=== PATIENT | female | born 1955 | race Caucasian/White ===

== ENCOUNTER 2016-08-02 02:49 | Inpatient (IN) ==
[2016-07-28 14:27] LABS: MANUAL DIFF NEEDED? NO
[2016-07-28 14:27] LABS: URINE MICRO REVIEW NEEDED? NO; URINE SOURCE CLEAN CATCH
[2016-07-28 14:28] LABS: BASO% 0.3 % (0.0-0.8); EOS# 0.18 X1000 (0.0-0.7); EOS% 1.8 % (0.0-10.0); HEMATOCRIT 40.1 % (37.0-47.0); HEMOGLOBIN 13.4 g/dL (12.0-16.0); IMM GRAN# 0.03 X1000 (0.0-0.04); IMM GRAN% 0.3 % (0.0-0.5); LYMPH# 2.99 X1000 (1.2-3.4); LYMPH% 30.6 % (20.5-51.1); MCH 29.8 PG (27-31); MCHC 33.4 g/dL (33-37); MCV 89.1 FL (81-99); MONO# 0.57 X1000 (0.11-0.59); MONO% 5.8 % (1.7-9.3); MPV 10.8 FL (7.4-10.4); NEUT% 61.2 % (42.2-75.2); PLT 239 X1000 (130-400)
[2016-07-28 14:31] LABS: BILIRUBIN URINE NEGATIVE (NEGATIVE); BLOOD URINE NEGATIVE (NEGATIVE); COLOR YELLOW; GLUCOSE URINE NEGATIVE (NEGATIVE); LEUKOCYTES URINE SMALL (NEGATIVE); NITRITE URINE NEGATIVE (NEGATIVE); PROTEIN URINE NEGATIVE (NEGATIVE); SP GRAVITY URINE 1.014; TURBIDITY URINE CLEAR (CLEAR); UROBILINOGEN URINE NORMAL (NORMAL)
[2016-07-28 14:32] LABS: UR EPITHELIAL CELLS <10 /HPF (<10); URINE BACTERIA NEGATIVE /HPF; URINE RBC <10 /HPF (<10); URINE WBC <10 /HPF (<10)
[2016-07-28 14:38] LABS: INR 0.91; PROTIME 9.5 Seconds (9.2-11.7)
--- NOTE | 2016-07-28 15:12 | EKG Report ---
Test Performed on : 07/28/2016 2:02:16 PM Test Reason : pat Blood Pressure : / mmHG Vent. Rate : 057 BPM Atrial Rate : 057 BPM P-R Int : 204 ms QRS Dur : 096 ms QT Int : 458 ms P-R-T Axes : 038 008 065 degrees QTc Int : 445 ms Sinus bradycardia. Otherwise normal ECG No previous ECGs available Confirmed by Claudia AGUILAR, Juan Reardon ([id number]) on 07/30/2016 7:11:26 AM
[2016-07-28 15:25] LABS: AGAP 13; BUN 12 mg/dL (8-22); CALCIUM 9.4 mg/dL (8.8-10.2); CHLORIDE 103 mmol/L (98-107); COSMO 289; POTASSIUM 4.1 mmol/L (3.5-5.1); SODIUM 144 mmol/L (136-145); TCO2 28 mmol/L (25-35)
[2016-08-02] MEDS ORDERED: REGLAN ONE (05:51)
[2016-08-02] MEDS ORDERED: CELEBREX ONE (05:51)
[2016-08-02] MEDS ORDERED: LR 1,000 ML ONE ×2 (05:51→10:30)
[2016-08-02] MEDS ORDERED: PEPCID ONE (05:51)
[2016-08-02] MEDS ORDERED: COLACE ONE (05:51)
[2016-08-02] MEDS ORDERED: KEFZOL 2 GM/D5W 2 GM/50 ML IVPB ONE (05:51)
[2016-08-02] MEDS ORDERED: LYRICA ONE (05:51)
[2016-08-02] MEDS ORDERED: SODIUM CHLORIDE 0.9% ONE (06:50)
[2016-08-02] MEDS ORDERED: MARCAINE 0.25% PF/EPI 1:200,000 ONE (06:50)
[2016-08-02] MEDS ORDERED: EXPAREL 1.3% ONE (06:50)
[2016-08-02] MEDS ORDERED: TORADOL ONE (06:50)
[2016-08-02] MEDS ORDERED: NEOSPORIN G.U. IRRIGANT ONE (06:50)
[2016-08-02] MEDS ORDERED: CYKLOKAPRON 1,000 MG/NS 2,000 MG/200 ML IVPB ONE (06:52)
[2016-08-02] MEDS ORDERED: VANCOMYCIN ONE (06:52)
[2016-08-02 08:19] LABS: URINE MICRO REVIEW NEEDED? NO; URINE SOURCE CATH
[2016-08-02 08:26] LABS: BILIRUBIN URINE NEGATIVE (NEGATIVE); BLOOD URINE NEGATIVE (NEGATIVE); COLOR YELLOW; GLUCOSE URINE NEGATIVE (NEGATIVE); LEUKOCYTES URINE NEGATIVE (NEGATIVE); NITRITE URINE NEGATIVE (NEGATIVE); PROTEIN URINE NEGATIVE (NEGATIVE); SP GRAVITY URINE 1.016; TURBIDITY URINE CLEAR (CLEAR); UROBILINOGEN URINE NORMAL (NORMAL)
[2016-08-02 08:27] LABS: UR EPITHELIAL CELLS <10 /HPF (<10); URINE BACTERIA NEGATIVE /HPF; URINE RBC <10 /HPF (<10); URINE WBC <10 /HPF (<10)
[2016-08-02] MEDS ORDERED: CYKLOKAPRON 1,000 MG/NS 1,000 MG/100 ML IVPB ONE ×2 (08:38)
[2016-08-02] MEDS ORDERED: NS 1,000 ML ONE (09:14)
[2016-08-02] MEDS ORDERED: DIPRIVAN 1% ONE (10:06)
[2016-08-02] MEDS ORDERED: VERSED ONE (10:06)
[2016-08-02] MEDS ORDERED: FENTANYL ONE (10:06)
[2016-08-02] MEDS ORDERED: XYLOCAINE-MPF 2% ONE (10:30)
[2016-08-02] MEDS ORDERED: ZOFRAN ONE (10:30)
[2016-08-02] MEDS ORDERED: DECADRON ONE (10:30)
[2016-08-02] MEDS ORDERED: OFIRMEV 1000 MG/ISOTONIC SOLN 1,000 MG/100 ML BOTTLE ONE (10:30)
[2016-08-02] MEDS ORDERED: MILK OF MAGNESIA PO PRN (10:46)
[2016-08-02] MEDS ORDERED: ZOFRAN IV PRN (10:46)
[2016-08-02] MEDS ORDERED: ROBINUL ONE (10:55)
[2016-08-02] MEDS: NS 1,000 ML IV SCH ×2 (11:30→21:13)
--- NOTE | 2016-08-02 12:01 | OPERATIVE NOTE ---
PROCEDURE DATE: 08/02/2016 PREOPERATIVE DIAGNOSIS: Left knee degenerative joint disease. POSTOPERATIVE DIAGNOSIS: Left knee degenerative joint disease. PROCEDURE: Left total knee arthroplasty using a [employer] orthopedic size 5 femoral component, size 4 tibial base plate, a 14 mm articular insert, and a 35 mm patellar component. ANESTHESIA: Spinal. SURGEON: Dylan Kern MD BANANA GRADER: Julien AGUILAR BANANA GRADER: BARTOLOME Rodriguez, PLACIDO Dinh, and Elie BLOOD LOSS: Minimal. DRAINS: Hemovac x1. TOURNIQUET TIME: Approximately an hour and a half. DESCRIPTION OF PROCEDURE: The patient was brought to the operative suite and placed in supine position. After successful administration of spinal anesthesia, a well-padded tourniquet was placed on the left proximal thigh. The left lower extremity was prepped and draped in the usual sterile fashion. Leg was exsanguinated. Tourniquet insufflated to 400 torr. A longitudinal incision was made beginning in the superior pole of the patella and extended distally to the tibia tuberosity. It was dissected sharply through the skin. Full-thickness skin flaps were elevated medially and laterally. A medial arthrotomy was made with a vastus snip. The medial capsule was elevated off the medial tibial plateau. Prepatellar fat pad, ACL, PCL, medial meniscus, lateral meniscus were excised. A drill was entered in the center of the distal femur. An intramedullary guide was placed, distal cutting block was pinned into place, distal cut was made with an oscillating saw. The femur was sized to a size 5, size 5 cutting block was pinned in place. Anterior cuts, chamfer cuts, and posterior condylar cuts were made with the oscillating saw. Marginal osteophytes removed with the rongeur. A box cutting block was pinned in place. A box cut was made a box osteotome and oscillating saw. Posterior condyle osteophytes removed with a curved osteotome and rongeur. Attention was then directed to the tibia. A drill was entered in the center of the tibia, an intramedullary guide was placed. Alignment was checked with a drop anayeli referencing off the anterior cortex of the tibia and the second ray of the foot, taking 2 mm off the low side of the tibia, which in this case was medially. She was found have sclerotic cartilage still present so an extra 2 mm was taken. The tibial cutting block was pinned into place. The articular service was removed with an oscillating saw. Marginal osteophytes were removed with a rongeur. Flexion-extension gaps were checked and balanced at 14 mm after performing a slight medial release, which was tight medially initially. The tibia was sized to a size 4, size 4 guide was used for the fin punch. The tibial trial, femoral trial, and articular insert were placed, taken through range of motion, found to have excellent alignment, balancing, range of motion. Attention was then directed to the patella, 9 mm of the articular surface of patella removed with oscillating saw. The patella sized to a size 35. A size 35 guide was used to drill peg holes. The lateral facet was chamfered 30 to 45 degrees. Patella trial was placed, taken through range of motion, found to have excellent patella tracking. All trials were then removed. The knee was copiously irrigated and dried being certain all bone debris was removed. The tibial component, femoral component, and patellar component were cemented into place, excess cement being removed with a [place]. Once the cement had hardened, excess cement was again removed with an osteotome. The knee was again copiously irrigated and dried, being certain all bone and cement debris were removed. The trial articular insert was removed. Knee was copiously infiltrated with Exparel, including posterior capsule, medial and lateral collateral ligaments, anterior capsule, anterior musculature. The definitive articular insert was locked into place. A drain was placed exiting superior lateral and buried in the lateral gutter. The knee was again taken through range of motion. Again, found to have excellent alignment, balancing, range of motion, patellar tracking. The medial arthrotomy was closed with a running 0 V-Loc suture. The skin edge approximated with 2- 0 Vicryl. Skin was closed with Dermabond. A sterile Mayco wrap was applied with a cooling blanket. The patient tolerated the procedure well without complication. At the end of the procedure, all counts correct x2. The patient was transferred to the recovery room in stable condition. cc: Dylan Kern MD
[2016-08-02] MEDS: ULTRAM PO SCH ×3 (12:30→23:50)
[2016-08-02] MEDS: MORPHINE IV PRN (16:13)
[2016-08-02] MEDS: TYLENOL PO SCH ×2 (16:13→21:14)
[2016-08-02] MEDS: KEFZOL 2 GM/D5W 2 GM/50 ML IVPB IV SCH ×2 (16:18→23:51)
[2016-08-02] MEDS ORDERED: VENTOLIN HFA INH PRN (20:16)
[2016-08-02] MEDS ORDERED: MELATONIN PO SCH (21:00)
[2016-08-02] MEDS ORDERED: AMBIEN PO PRN (21:00)
[2016-08-02] MEDS: XANAX PO SCH (21:13)
[2016-08-02] MEDS: PERIDEX MT SCH (21:13)
[2016-08-02] MEDS: OXY IR PO PRN (21:14)
[2016-08-02] MEDS: COLACE PO SCH (21:15)
[2016-08-02] MEDS: ZANTAC PO SCH (21:15)
[2016-08-03] MEDS: MORPHINE IV PRN ×2 (00:46→07:47)
[2016-08-03] MEDS: NS 1,000 ML IV SCH (01:48)
[2016-08-03] MEDS: TYLENOL PO SCH ×2 (03:00→08:46)
[2016-08-03] MEDS: OXY IR PO PRN ×2 (03:00→12:06)
[2016-08-03 05:40] LABS: HEMOGLOBIN 11.1 g/dL (12.0-16.0)
[2016-08-03 05:41] LABS: HEMATOCRIT 34.5 % (37.0-47.0)
[2016-08-03] MEDS ORDERED: XARELTO PO SCH (06:00)
[2016-08-03 06:07] LABS: AGAP 12; BUN 13 mg/dL (8-22); CALCIUM 9.2 mg/dL (8.8-10.2); CHLORIDE 105 mmol/L (98-107); COSMO 291; POTASSIUM 4.8 mmol/L (3.5-5.1); SODIUM 145 mmol/L (136-145); TCO2 28 mmol/L (25-35)
[2016-08-03] MEDS: ULTRAM PO SCH (06:25)
[2016-08-03] MEDS ORDERED: PROTONIX PO SCH (07:00)
[2016-08-03] MEDS: PERIDEX MT SCH (08:45)
[2016-08-03] MEDS: COLACE PO SCH (08:47)
[2016-08-03] MEDS: ZANTAC PO SCH (08:47)
[2016-08-03] MEDS: XANAX PO SCH (08:48)
[2016-08-03] MEDS ORDERED: CELEBREX PO SCH (09:00)
[2016-08-03] MEDS ORDERED: XANAX PO SCH ×2 (09:00)
[2016-08-03] MEDS ORDERED: HYTRIN PO SCH (09:00)
[2016-08-03] MEDS ORDERED: PEPCID PO SCH (09:00)
[2016-08-03] MEDS ORDERED: NEURONTIN PO SCH (09:00)
[2016-08-03] MEDS ORDERED: THERA M PLUS PO SCH (09:00)
[2016-08-03] MEDS ORDERED: CELEXA PO SCH (09:00)
[2016-08-03] MEDS ORDERED: DECADRON IV ONE (09:00)
[2016-08-03 11:32] VITALS: BP 125/57
--- NOTE | 2016-08-03 17:30 | DISCHARGE SUMMARY ---
ADMISSION DATE: 08/02/2016 DISCHARGE DATE: 08/03/2016 DISCHARGE DIAGNOSIS: Left knee degenerative joint disease, status post left total knee arthroplasty. DISCHARGE MEDICATIONS: See discharge medication list. DISPOSITION: The patient is discharged home with home health. DISCHARGE INSTRUCTIONS: Instructions for total knee arthroplasty protocol. She is to return to see Dr. Kern next . HOSPITAL COURSE: On the day of admission, patient underwent a left total knee arthroplasty. Her postoperative course was unremarkable. At discharge, she is afebrile, tolerating a regular diet, and she is ambulating well with physical therapy. Her wound is clean, dry, and intact without sign of infection. Her hemoglobin is 11.1, her hematocrit is 34.5. Her drain output is 95 mL. She is discharged home with home health in stable condition with instructions to follow up as described above. Dictated by BARTOLOME Vazquez for Dylan Kern MD cc: BARTOLOME Vazquez MD
== END 2016-08-03 13:42 | disposition home health service (06) ==
LOC: SURHOLD 02:49 → 4N 08:27 → EDSTATUS 08:30
PROVIDERS: ADMIT Orthopaedic Surgery; ATTEND Orthopaedic Surgery

== ENCOUNTER 2016-08-08 06:39 | Inpatient (IN) ==
[2016-08-08] MEDS ORDERED: ZOSYN 3.375 GM/NS 3.375 GM/50 ML IVPB IV ONE (07:07)
[2016-08-08] MEDS ORDERED: VANCOMYCIN 1 GM/NS 1 GM/250 ML IVPB IV ONE (07:07)
[2016-08-08] MEDS ORDERED: DILAUDID IV ONE (07:07)
[2016-08-08] MEDS ORDERED: REGLAN IV ONE (07:14)
--- NOTE | 2016-08-08 07:15 | PROVIDER DOCUMENTATION ---
HPI-Musculoskeletal Pain/Inj - GENERAL Chief Complaint: Extremity Pain Stated Complaint: post op complaint Time Seen by Provider: 08/08/16 07:02 Source: patient - HX OF PRESENT ILLNESS-MUSKULOSKELTAL Nature of Presenting Problem: 3 days of increasing L leg pain, from mid thiugh runs distally. Also has had fever. She had L knee surg by Dr Kern on Tuesday. Pain at rest is posterior leg , calf, medial thigh. If she flexes knee, is to ant knee Quality of Pain: reports: aching, sharp Severity in ED: severe Onset/Duration: 3 days ago Timing: constant, getting worse Modifying Factors: worse with: movement Any recent injury?: Yes Locality of Occurance: Home Similar Symptoms Previously?: No Recently seen or treated by another doctor?: Yes (surgery on Tuesday) - LOWER EXTREMITY PAIN/INJURY Lower Extremities Pain: leg: left, knee: left, thigh: left Associated Symptoms: reports: other (fever) Review of Systems - Adult - REVIEW OF SYSTEMS - ADULT Constitutional: reports: see HPI, fever Eyes: reports: no symptoms reported Ears, Nose, Mouth & Throat: reports: no symptoms reported Cardiovascular: reports: no symptoms reported Respiratory: reports: no symptoms reported Gastrointestinal: reports: nausea Genitourinary: reports: no symptoms reported Musculoskeletal: reports: see HPI Integumentary: reports: no symptoms reported Neurological: reports: no symptoms reported Psychiatric: reports: no symptoms reported Endocrine: reports: no symptoms reported Hematologic/Lymphatic: reports: no symptoms reported Allergic/Immunologic: reports: no symptoms reported Past History - Adult - PAST MEDICAL HISTORY-ADULT Review of Records: reports: Medications Reviewed Major Childhood Illnesses: reports: denies history - SOCIAL HISTORY Smoking: cigarettes Provider spent 3-5 mins advising pt. on dangers of tobacco.: Discussed manners to quit use, and f/u contacts for add'l counseling. Physical Exam-Injury Related - Physical Exam-Injury Related Initial Vital Signs Reviewed: Yes General Appearance: appears well, alert, mild distress Eyes: PERRL/EOMI, pink conjunctivae Head, Ears, Nose, Mouth & Throat: normocephalic/atraumatic, moist mucous membranes, normal ENT inspection, pharynx normal Neck: full range of motion, supple, normal inspection Respiratory: lungs clear, normal breath sounds, no respiratory distress, no accessory muscle use Cardiovascular: normal peripheral pulses, regular rate, rhythm, no edema Peripheral Pulses: dorsalis-pedis (L): 4+ Abdominal Exam: non tender, soft Female Genitalia/Pelvic Exam: deferred Rectal Exam: deferred Extremity: other (L knee is swollen. The leg is warm, no excessive erythema. Theder medial thigh, circumferential knee, and post calf) Integumentary: normal color, warm/dry Neurologic: carbide powder processor II-XII nml as tested, grossly normal, no motor/sensory deficits Psych/Mental Status: normal mood/affect, normal thought content, normal thought process, oriented x 3 Progress - PLAN OF CARE/RESULTS Progress/Plan/Lab Results: Vital Signs - 8 hr 08/08/16 06:49 08/08/16 07:26 08/08/16 07:43 Temperature 102.9 F H Pulse Rate 96 H 87 95 H Respiratory Rate 22 16 24 Blood Pressure 133/48 148/64 142/90 O2 Sat by Pulse Oximetry 96 88 L 92 L 08/08/16 08:14 Temperature Pulse Rate 98 H Respiratory Rate 20 Blood Pressure 109/52 O2 Sat by Pulse Oximetry 93 L Laboratory Results - last 24 hr 08/08/16 08/08/16 08/08/16 07:00 07:00 07:00 WBC 11.64 H RBC 3.40 L Hgb 10.0 L Hct 31.2 L MCV 91.8 MCH 29.4 MCHC 32.1 L RDW Std Deviation 14.3 Plt Count 242 MPV 10.5 H Immature Gran % (Auto) 0.3 Neut % (Auto) 74.2 Lymph % (Auto) 17.1 L [place] % (Auto) 7.1 Eos % (Auto) 1.1 Baso % (Auto) 0.2 Immature Gran # (Auto) 0.03 Neut # (Auto) 8.64 H Lymph # (Auto) 1.99 [place] # (Auto) 0.83 H Eos # (Auto) 0.13 Baso # (Auto) 0.02 PT INR D-Dimer 2.44 H Sodium 143 Potassium 4.0 Chloride 102 Carbon Dioxide 30 Anion Gap 11 BUN 10 Creatinine 0.8 Estimated GFR/1.73 m2 > 60 BUN/Creatinine Ratio 13 Glucose 129 H Calculated Osmolality 286 Calcium 8.4 L Total Bilirubin 0.99 AST 19 ALT 16 Alkaline Phosphatase 81 Total Protein 5.9 L Albumin 3.5 Globulin 2.4 Albumin/Globulin Ratio 1.5 Plasma Lactate Urine Source Urine Color Urine Turbidity Urine pH Ur Specific [place] Urine Protein Ur Glucose (Stick) Ur Ketones (Stick) Urine Blood Urine Nitrite Urine Bilirubin Urobilinogen Dipstick Urine Leukocytes Urine WBC (Auto) Urine RBC (Auto) U Epithel Cells (Auto) Urine Bacteria (Auto) 08/08/16 08/08/16 08/08/16 07:00 07:00 07:50 WBC RBC Hgb Hct MCV MCH MCHC RDW Std Deviation Plt Count MPV Immature Gran % (Auto) Neut % (Auto) Lymph % (Auto) [place] % (Auto) Eos % (Auto) Baso % (Auto) Immature Gran # (Auto) Neut # (Auto) Lymph # (Auto) [place] # (Auto) Eos # (Auto) Baso # (Auto) PT 10.2 INR 0.97 D-Dimer Sodium Potassium Chloride Carbon Dioxide Anion Gap BUN Creatinine Estimated GFR/1.73 m2 BUN/Creatinine Ratio Glucose Calculated Osmolality Calcium Total Bilirubin AST ALT Alkaline Phosphatase Total Protein Albumin Globulin Albumin/Globulin Ratio Plasma Lactate 1.1 Urine Source CLEAN CATCH Urine Color YELLOW Urine Turbidity CLEAR Urine pH 7.5 Ur Specific [place] 1.006 Urine Protein NEGATIVE Ur Glucose (Stick) NEGATIVE Ur Ketones (Stick) NEGATIVE Urine Blood NEGATIVE Urine Nitrite NEGATIVE Urine Bilirubin NEGATIVE Urobilinogen Dipstick NORMAL Urine Leukocytes NEGATIVE Urine WBC (Auto) <10 Urine RBC (Auto) <10 U Epithel Cells (Auto) <10 Urine Bacteria (Auto) NEGATIVE Orders Category Date Time Status KNEE 3 VIEWS LEFT [RAD] Stat Exams 08/08/16 09:49 Completed BLOOD CULTURE [BLDCUL] Stat Lab 08/08/16 07:48 Received CBC WITH DIFF [HEME] Stat Lab 08/08/16 07:00 Completed COMPREHENSIVE METABOLIC PANEL [CHEM] Stat Lab 08/08/16 07:00 Completed D-DIMER [CHEM] Stat Lab 08/08/16 07:00 Completed LACTATE, PLASMA [CHEM] Stat Lab 08/08/16 07:00 Completed PROTIME WITH INR [COAG] Stat Lab 08/08/16 07:00 Completed URINALYSIS W/POSS RFLX CULT [URINALYSIS] Stat Lab 08/08/16 07:50 Completed Acetaminophen [Tylenol] Med 08/08/16 09:38 Discontinued 650 mg PO NOW ONE Hydromorphone [Dilaudid] Med 08/08/16 07:07 Discontinued 1 mg IV NOW ONE Metoclopramide [Reglan] Med 08/08/16 07:14 Discontinued 10 mg IV NOW ONE Piperacil/Tazobact 3.375 gm/Ns [Zosyn 3.375 gm/Ns] Med 08/08/16 07:07 Discontinued 3.375 gm in 50 ml IV NOW Vancomycin 1 gm/Ns Med 08/08/16 07:07 Discontinued 1 gm in 250 ml IV NOW Venous U/S Left Leg Stat Ther 08/08/16 07:08 Completed Result Diagrams: 08/08/16 07:00 08/08/16 07:00 - ULTRASOUND (By Radiology) 1 US Study: Lower Ext Impression: Normal - CONSULTS/PCP/HOSPITALIST Notification #1 *Consult/PCP/Hospitalist*: sharp Time Discussed: 10:40 Consult Disposition: Will see in ED, Admit Departure - Departure Time of Disposition Decision: 11:04 DIAGNOSIS: Postoperative pain of left knee Fever Qualifiers: Fever type: unspecified Qualified Code(s): R50.9 - Fever, unspecified Disposition: ADMITTED INPATIENT 09 Certified Medical Emergency: Emergent Condition: Good - Critical Care Note This patient required my direct & personal management of CC.: No
[2016-08-08 07:30] LABS: MANUAL DIFF NEEDED? NO
[2016-08-08 07:32] LABS: BASO% 0.2 % (0.0-0.8); EOS# 0.13 X1000 (0.0-0.7); EOS% 1.1 % (0.0-10.0); HEMATOCRIT 31.2 % (37.0-47.0); IMM GRAN# 0.03 X1000 (0.0-0.04); IMM GRAN% 0.3 % (0.0-0.5); LYMPH# 1.99 X1000 (1.2-3.4); LYMPH% 17.1 % (20.5-51.1); MCH 29.4 PG (27-31); MCHC 32.1 g/dL (33-37); MCV 91.8 FL (81-99); MONO# 0.83 X1000 (0.11-0.59); MONO% 7.1 % (1.7-9.3); MPV 10.5 FL (7.4-10.4); NEUT% 74.2 % (42.2-75.2); PLT 242 X1000 (130-400)
[2016-08-08 07:46] LABS: AGAP 11; ALBUMIN 3.5 g/dL (3.5-5.0); ALKALINE PHOSPHATASE 81 U/L (32-104); BUN 10 mg/dL (8-22); CALCIUM 8.4 mg/dL (8.8-10.2); CHLORIDE 102 mmol/L (98-107); COSMO 286; GOT 19 U/L (10-30); GPT 16 U/L (10-36); INR 0.97; PROTIME 10.2 Seconds (9.2-11.7); SODIUM 143 mmol/L (136-145); TCO2 30 mmol/L (25-35); TOTAL BILIRUBIN 0.99 mg/dL (0.20-1.00); TOTAL PROTEIN 5.9 g/dL (6.3-8.3)
[2016-08-08 08:11] LABS: URINE CULTURE NEEDED? NO; URINE MICRO REVIEW NEEDED? NO; URINE SOURCE CLEAN CATCH
[2016-08-08 08:25] LABS: BILIRUBIN URINE NEGATIVE (NEGATIVE); BLOOD URINE NEGATIVE (NEGATIVE); COLOR YELLOW; GLUCOSE URINE NEGATIVE (NEGATIVE); LEUKOCYTES URINE NEGATIVE (NEGATIVE); NITRITE URINE NEGATIVE (NEGATIVE); PH URINE 7.5; PROTEIN URINE NEGATIVE (NEGATIVE); SP GRAVITY URINE 1.006; TURBIDITY URINE CLEAR (CLEAR); UROBILINOGEN URINE NORMAL (NORMAL)
[2016-08-08 08:27] LABS: UR EPITHELIAL CELLS <10 /HPF (<10); URINE BACTERIA NEGATIVE /HPF; URINE RBC <10 /HPF (<10); URINE WBC <10 /HPF (<10)
[2016-08-08] MEDS ORDERED: TYLENOL PO ONE (09:38)
--- NOTE | 2016-08-08 10:21 | Diag Imaging Result Doc PS360 ---
EXAM: KNEE 3 VIEWS LEFT HISTORY: pain TECHNIQUE: Three views COMMENT: There is a total knee arthroplasty. There appears to be no evidence of prosthetic loosening fracture or dislocation. There may be an effusion. There is considerable soft tissue swelling particularly superficial to the distal quadriceps tendon. There is also soft tissue swelling superficial to the patellar tendon. IMPRESSION: Soft tissue swelling. Possibility of cellulitis cannot be excluded. No acute bony disease. Electronically signed by Tolu Crawford 08/08/2016 10:19 AM
[2016-08-08] MEDS ORDERED: VANCOMYCIN IV PER PHARMACY MISC SCH (13:47)
[2016-08-08] MEDS ORDERED: NS 1,000 ML IV ONE (13:47)
[2016-08-08] MEDS: DILAUDID IV PRN ×4 (14:06→23:55)
[2016-08-08] MEDS: ZOSYN 3.375 GM/NS 3.375 GM/50 ML IVPB IV SCH ×2 (14:06→20:35)
[2016-08-08] MEDS ORDERED: VANCOMYCIN 1,500 MG in NS 250 ML IV ONE (17:00)
[2016-08-08] MEDS ORDERED: TYLENOL PO PRN (20:27)
[2016-08-08] MEDS: TYLENOL PO PRN (20:35)
[2016-08-09] MEDS: ZOSYN 3.375 GM/NS 3.375 GM/50 ML IVPB IV SCH ×4 (01:40→23:44)
[2016-08-09] MEDS: DILAUDID IV PRN ×6 (03:36→23:44)
[2016-08-09] MEDS: TYLENOL PO PRN ×2 (03:40→23:44)
[2016-08-09] MEDS ORDERED: ZOFRAN IV PRN (12:09)
[2016-08-09] MEDS ORDERED: VANCOMYCIN ONE (15:47)
[2016-08-09] MEDS ORDERED: NEOSPORIN G.U. IRRIGANT ONE ×2 (15:47→16:55)
[2016-08-09] MEDS ORDERED: TOBRAMYCIN POWDER MISC ONE (15:52)
[2016-08-09] MEDS ORDERED: CYKLOKAPRON 1,000 MG/NS 1,000 MG/100 ML IVPB ONE ×2 (16:11)
[2016-08-09] MEDS ORDERED: DEMEROL ONE (17:54)
[2016-08-09] MEDS ORDERED: FENTANYL ONE (18:01)
[2016-08-09] MEDS ORDERED: DIPRIVAN 1% ONE (18:01)
--- NOTE | 2016-08-09 18:01 | HISTORY AND PHYSICAL ---
ATTENDING: Dr. Kern CHIEF COMPLAINT: Left knee pain, swelling, and redness status post total knee arthroplasty. HISTORY OF PRESENT ILLNESS: Elis Hurtado is a 61-year-old female who had a left total knee arthroplasty on August 02, 2016. She presents to the ER with left knee incisional erythema, drainage, and swelling. She states that the onset of symptoms began on Tuesday. Her home health care nurse did assess the wound and incision at this time and reported no notable concerns. On Tuesday she began to feel worse and her knee started causing her more pain and became very stiff. She reports she had been walking very well throughout the week but on Tuesday she was unable to get around. Tuesday, she began having fever and chills, and she presented to the [facility] Room, where she was admitted for a possible surgical infection. She does report what she claims as significant drainage from the incision on Tuesday. She states the drainage was bloody. She denies cough, nausea, vomiting, or headache. She states that her prescribed pain medicine was not effective in relieving her pain. PRIMARY CARE PROVIDER: None. ALLERGIES: No known drug allergies. PAST MEDICAL HISTORY: Osteoarthritis, chronic obstructive pulmonary disease, primary essential hypertension, depression, fibromyalgia, gastroesophageal reflux disease, neuropathy, mitral valve prolapse, restless leg syndrome, drug abuse. PAST SURGICAL HISTORY: Left total knee arthroplasty July 2016, bilateral breast biopsies, D and C, cholecystectomy, hysterectomy. SOCIAL HISTORY: The patient does report smoking daily. She is and lives with her . She denies excessive consumption of alcohol and denies illicit drug use. CURRENT MEDICATIONS: Xanax 1 mg, citalopram 20 mg, gabapentin 400 mg, melatonin 10 mg, pantoprazole 40 mg, ProAir, ranitidine 150 mg, terazosin 10 mg, tramadol 50 mg. REVIEW OF SYSTEMS: HEENT: No known history of stroke or cerebrovascular disease. Denies recently dizzy spells, syncopal events, or interval health change. Cardiac: The patient does have a history of mitral valve prolapse but she reports no symptoms. Denies any coronary artery disease. Denies chest pain, pressure, or other anginal equivalents. Pulmonary: The patient is a smoker. She does have a history of COPD. She states that she does get short of breath at times. Gastrointestinal: She reports her bowels have moved since surgery and she has had no issues. No recent nausea, vomiting, diarrhea, or constipation. Genitourinary: Denies kidney or bladder infection, or any dysfunction. Neurological: She does have some neuropathy to her feet bilaterally. No major weakness or paresthesias noted. Musculoskeletal: She does report significant pain and weakness to that left knee as well as redness and swelling. PHYSICAL EXAMINATION: GENERAL: Currently, the patient is resulting comfortably on the bed. She is alert and oriented and able to answer all questions appropriately. She is in no acute distress. HEENT: Head is normocephalic. Pupils are PERRLA. Nares are patent. Throat is without exudate. NECK: Supple without any lymphadenopathy. HEART: Regular rate and rhythm. No murmurs, gallops, or rubs are audible. LUNGS: Expiratory wheezes bilaterally on occasion. Respirations are even and unlabored. ABDOMEN: Round. Bowel sounds are present. She is soft and nontender. NEUROLOGICAL: Does describe numbness and tingling to bilateral feet. Gross motor function is intact. MUSCULOSKELETAL: Weakness noted to the left hip as well as some bruising to the incision site. She does have some erythema and a mild amount of serosanguineous drainage. No purulent discharge or foul odor is noted. Good peripheral pulses. LABORATORY DATA: White count is 11.64, hemoglobin and hematocrit are 10 and 31.2, platelet count 242. Sodium 143, potassium 4, BUN 10, creatinine 0.8, glucose 129, urinalysis is negative. IMAGING: A left knee 3 views was performed, the radiologist read as soft tissue swelling, possibility of cellulitis cannot be excluded but no acute bony disease. IMPRESSION: Soft tissue infection to the left total knee arthroplasty incision. PLAN: 1. We will perform incision and drainage of the left knee incision status post left total knee arthroplasty. 2. We will also start her on broad spectrum antibiotics and culture and gram stain the incision. Risks and benefits of surgery were explained to the patient including the risk of anesthesia, , bleeding, infection, damage to tendons, ligaments, nerves, blood vessels, possibly , blood clots, and other imponderables were discussed with the patient, and she does wish to proceed with operative management at this time. Dictated by PLACIDO Chavira for Dylan Kern MD cc: PLACIDO Chavira MD
[2016-08-09] MEDS: DILAUDID ONE ×4 (18:20→18:35)
[2016-08-09] MEDS: VANCOMYCIN 2,500 MG in NS 500 ML IV SCH (19:23)
[2016-08-09] MEDS: NS 1,000 ML IV SCH (19:25)
[2016-08-09 21:45] LABS: URINE CULTURE NEEDED? NO; URINE MICRO REVIEW NEEDED? NO; URINE SOURCE CATH
[2016-08-09] MEDS: PERIDEX MT SCH (21:52)
[2016-08-09 22:05] LABS: BILIRUBIN URINE NEGATIVE (NEGATIVE); BLOOD URINE NEGATIVE (NEGATIVE); COLOR YELLOW; GLUCOSE URINE NEGATIVE (NEGATIVE); LEUKOCYTES URINE NEGATIVE (NEGATIVE); NITRITE URINE NEGATIVE (NEGATIVE); PROTEIN URINE NEGATIVE (NEGATIVE); SP GRAVITY URINE 1.017; TURBIDITY URINE CLEAR (CLEAR); UROBILINOGEN URINE NORMAL (NORMAL)
[2016-08-09 22:06] LABS: UR EPITHELIAL CELLS <10 /HPF (<10); URINE BACTERIA NEGATIVE /HPF; URINE RBC <10 /HPF (<10); URINE WBC <10 /HPF (<10)
[2016-08-10] MEDS ORDERED: VENTOLIN HFA INH PRN (01:11)
--- NOTE | 2016-08-10 01:23 | OPERATIVE NOTE ---
PROCEDURE DATE: 08/09/2016 PREOPERATIVE DIAGNOSIS: Left knee hematoma, with cellulitis. POSTOPERATIVE DIAGNOSIS: Left knee hematoma, with cellulitis. PROCEDURE PERFORMED: Evacuation of superficial hematoma, left knee. ANESTHESIA: General. SURGEON: Dylan Kern MD. SPEECH LANG PATH THERAPIST: Julien. COMPLICATIONS: None. BLOOD LOSS: Minimal. DESCRIPTION OF PROCEDURE: The patient brought to the operative suite and placed in supine position. After satisfactory administration of general anesthesia, a well-padded tourniquet was placed on left proximal thigh. The left lower extremity was prepped and draped in the usual sterile fashion. The leg was exsanguinated. Tourniquet insufflated to 400 torr. The previous incision was opened. There was found to be hematoma. Cultures were obtained. There was no hematoma in the main knee joint. There was a rent in the capsule, however. This was repaired with 0 Vicryl suture after copiously irrigating the superficial knee, and through this rent we irrigated the knee as well, with normal saline containing irrigant. The rent was repaired with 0 Vicryl. The skin edge was approximated with 3-0 nylon. A sterile dressing compressive was applied. The patient tolerated the procedure without complication. At the end of the procedure, all counts correct x2. The patient was transferred to the recovery room in stable condition. Scale peak with cessation. She has been in her. cc: Dylan Kern MD
[2016-08-10] MEDS: XANAX PO SCH ×4 (01:24→21:01)
[2016-08-10] MEDS: NS 1,000 ML IV SCH (02:08)
[2016-08-10] MEDS: ULTRAM PO SCH ×3 (02:08→15:54)
[2016-08-10] MEDS: DILAUDID IV PRN ×5 (03:06→20:50)
[2016-08-10] MEDS: ZOSYN 3.375 GM/NS 3.375 GM/50 ML IVPB IV SCH (05:22)
[2016-08-10] MEDS: PROTONIX PO SCH ×2 (05:23→06:19)
[2016-08-10 05:34] LABS: HEMATOCRIT 28.5 % (37.0-47.0)
[2016-08-10 05:48] LABS: AGAP 10; BUN 10 mg/dL (8-22); CALCIUM 8.6 mg/dL (8.8-10.2); CHLORIDE 103 mmol/L (98-107); COSMO 283; POTASSIUM 4.2 mmol/L (3.5-5.1); SODIUM 141 mmol/L (136-145); TCO2 28 mmol/L (25-35)
--- NOTE | 2016-08-10 05:54 | Diag Imaging Result Doc PS360 ---
EXAM: CHEST-1 VIEW HISTORY: rehab placement TECHNIQUE: Portable COMPARISON: None. FINDINGS: The lungs are well expanded. The heart is not enlarged. The vessels are not distended. There are no infiltrates. No effusion identified. IMPRESSION: Negative exam.. Electronically signed by Laci Elizondo 08/10/2016 5:52 AM
[2016-08-10] MEDS ORDERED: LOPRESSOR ONE (07:11)
[2016-08-10] MEDS ORDERED: DECADRON ONE (07:12)
[2016-08-10] MEDS ORDERED: NEOSTIGMINE ONE (07:12)
[2016-08-10] MEDS ORDERED: ZEMURON ONE (07:12)
[2016-08-10] MEDS ORDERED: LR 1,000 ML ONE (07:12)
[2016-08-10] MEDS ORDERED: ROBINUL ONE (07:12)
[2016-08-10] MEDS ORDERED: ZOFRAN ONE (07:12)
[2016-08-10] MEDS ORDERED: OFIRMEV 1000 MG/ISOTONIC SOLN 1,000 MG/100 ML BOTTLE ONE (07:12)
[2016-08-10] MEDS ORDERED: QUELICIN (DOSE) ONE (07:12)
[2016-08-10] MEDS ORDERED: XYLOCAINE-MPF 2% ONE (07:12)
--- NOTE | 2016-08-10 08:13 | PROGRESS NOTE ---
DATE: 08/10/2016 SUBJECTIVE: Elis Hurtado is a 61-year-old female who is postoperative day 1 from evacuation of a hematoma of her left knee and cellulitis. She is doing well and has no new complaints. OBJECTIVE: She is a well-developed, well-nourished female. She is alert, oriented, and cooperative with the exam. Her vital signs are stable. She is afebrile. Her surgical wounds are negative. Her culture from the ER has grown out gram-positive cocci. This could be a skin contaminant, however. ASSESSMENT: Left total knee with hematoma and cellulitis. PLAN: We are going to continue her on IV antibiotics for now. She says she wants to go to rehab now which I certainly understand. We are going to discontinue her drain and fluids, and I am going to ask Dr. Ozuna to see her. I have to be certain we have her on the correct antibiotic. I suspect we will discontinue her strong antibiotics that she is on now and probably eventually put her on p.o. medication prior to transfer to rehab. cc: Dylan Kern MD
[2016-08-10] MEDS: PERIDEX MT SCH ×2 (09:01→20:59)
[2016-08-10] MEDS: HYTRIN PO SCH (09:04)
[2016-08-10] MEDS: ZANTAC PO SCH ×2 (09:08→20:59)
[2016-08-10] MEDS: THERA M PLUS PO SCH (09:08)
[2016-08-10] MEDS: NEURONTIN PO SCH ×4 (09:08→20:51)
[2016-08-10] MEDS: CELEBREX PO SCH ×2 (09:09→21:00)
[2016-08-10] MEDS: CELEXA PO SCH (09:09)
[2016-08-10 09:24] LABS: INR 0.97; PROTIME 10.2 Seconds (9.2-11.7)
[2016-08-10] MEDS: OXY IR PO PRN ×4 (10:22→22:25)
[2016-08-10] MEDS ORDERED: NS 250 ML ONE (11:04)
--- NOTE | 2016-08-10 12:16 | CONSULTATION ---
DATE OF CONSULTATION: 08/10/2016 CONCLUSION: The patient was admitted to the hospital with fever, and erythema and swelling of the left leg. She certainly had what sounds like cellulitis. The patient underwent surgery yesterday, performed by Dr. Kern. Among other things, he did irrigate the patient's total knee arthroplasty. A culture taken from the knee at surgery is growing Gram-positive cocci. RECOMMENDATIONS: Since the patient's knee was irrigated yesterday and there could be infection in the irrigation process itself, I think the patient should be treated with IV antibiotics for a total of 6-8 weeks, depending on the identity of the Gram-positive coccus growing from the wound. DISCUSSION: As mentioned above, a week ago, the patient started developing erythema, swelling, and pain in her left leg associated with fever. She had just had a left total knee arthroplasty done on the leg. Yesterday, Dr. Kern took the patient to surgery and, among other things, irrigated the knee itself. The patient's lab studies thus far show a CBC with a white count of 11,640, hemoglobin 9, and platelet count 242,000. Creatinine is 0.7. GFR is greater than 60. Liver function studies are normal. Urinalysis showed no white cells or bacteria. Blood cultures are negative. All the cultures at surgery are negative except for one, which is growing Gram- positive cocci. Chest x-ray showed clear lung bartlett. X-ray of the left knee showed soft tissue swelling. PAST MEDICAL HISTORY AND REVIEW OF SYSTEMS: Eyes and ears: Patient wears glasses. Her hearing is good. Neck: No stiffness. Gastrointestinal: The patient told me she has a spastic colon, which causes her to have constipation and abdominal pain. She also has gastroesophageal reflux disease, which causes her to have heartburn. Genitourinary: The patient has some urinary frequency and occasionally incontinence. Cardiovascular: No chest pain or palpitations. Pulmonary: No coughing or wheezing. Neurologic: No seizures. No syncopal episodes. No unilateral loss of motor or sensory function. Endocrine: The patient does not have diabetes or thyroid disease. Bones, joints, muscles: See above for description of the pain in her left knee. OBSTETRICAL AND GYNECOLOGICAL HISTORY: She is a 3, para 1, AB 2. She has had a hysterectomy and tubal ligation. PREVIOUS HOSPITALIZATIONS AND OPERATIONS: She has had labor and delivery, 2 miscarriages. Hysterectomy, tubal ligation, left and right total knee arthroplasty, cholecystectomy. Admissions for gastroesophageal reflux disease and bronchitis. MEDICAL DISEASES: Positive for mitral valve prolapse, gastroesophageal reflux disease, fibromyalgia, osteoarthritis, neuropathy, and restless legs. INFECTIOUS DISEASE HISTORY: Positive for bronchitis and UTI. FAMILY HISTORY: Positive for diabetes mellitus, hypertension, myocardial infarction, and cancer. SOCIAL HISTORY[place] . She occasionally smokes cigarettes and drinks alcoholic beverages. She does not abuse drugs. She said the last time she did abuse drugs was about 7 years ago. She is . She has a dog as a pet. She is disabled due to arthritis. ALLERGIES: No known drug allergies. MEDICATIONS AT HOME: Tramadol, Hytrin, Zantac, Protonix, multivitamins, melatonin, Neurontin, Celexa, Celebrex, Xanax, ProAir, and Tylenol. PHYSICAL EXAMINATION: Vital Signs: Temperature is 99.2 degrees, pulse 71, respirations 16, blood pressure 113/45. Patient weighs 284 pounds. General: This is an obese, middle-aged female. She is in no acute distress. Head, eyes, ears, nose, and throat: She can hear my spoken words and see near objects. She is wearing dentures on the upper part. She does not have any white patches on her tongue. Neck: No meningismus. Thorax: There appears be an increased AP diameter to the chest. Abdomen: Soft and nontender. Cardiovascular: Regular heart rate. Lungs: Clear to auscultation. Extremities: The patient's left knee had a large Mayco wrap around it. It was swollen. Neurologic: Patient is awake. She can move her extremities. There is no tremor. Her sensation is intact to touch. Her memory, as regarding her medical history, is intact. Thank you for the consult. cc: MD Dylan Ivey MD
--- NOTE | 2016-08-10 13:31 | Extremity Venous Study ---
PROCEDURE NAME: Venous U/S Left Leg - 08/08/2016 PROCEDURE: Left lower extremity venous duplex and color flow imaging study. EQUIPMENT USED: [employer] E 9 ultrasound system with a 9 L-D transducer. DATE OF STUDY: 08/08/2016. REFERRING PHYSICIAN: Dr. Flores from the emergency department. PATIENT PROFILE: A 61-year-old female. AIRCRAFT F[employer]ER: Rupinder Wiley RVT. INDICATIONS: 1. History of knee joint replacement, ICD 10 is Z 9-6.659. 2. Swelling of the limb, M 79.89. FINDINGS: This is a limited study secondary to the patient's obesity. The distal 5 veins were not well visualized. The left common femoral vein and its proximal branches, the deep and superficial femoral veins, were imaged. They had flow through them and were compressible without evidence of thrombus. The left popliteal vein and the deep veins below the left knee had flow through them and were compressible without evidence of thrombus. The superficial veins of the left lower extremity were compressible throughout their length. INTERPRETATION: This is a limited study, but there was no evidence of acute deep or superficial venous thrombosis of the left lower extremity. cc: MD Dylan Jolley MD
[2016-08-10] MEDS: VANCOMYCIN 2,500 MG in NS 500 ML IV SCH (17:40)
[2016-08-10] MEDS: MELATONIN PO SCH (20:59)
[2016-08-10] MEDS: COLACE PO SCH (22:30)
[2016-08-11] MEDS: ULTRAM PO SCH ×4 (03:51→17:32)
[2016-08-11] MEDS: DILAUDID IV PRN ×4 (03:51→20:48)
[2016-08-11] MEDS: OXY IR PO PRN ×4 (05:10→17:36)
[2016-08-11] MEDS: PROTONIX PO SCH ×2 (05:10→08:40)
[2016-08-11 05:46] LABS: HEMATOCRIT 28.5 % (37.0-47.0); HEMOGLOBIN 8.6 g/dL (12.0-16.0)
--- NOTE | 2016-08-11 07:05 | PROGRESS NOTE ---
DATE: 08/11/2016 PRESENT ILLNESS: The patient has cellulitis of the left leg. It is dramatically improved in the 2 days that she has been here and getting antibiotics. MEDICATIONS: The patient is on vancomycin as a single agent. This is the 3rd day of treatment with the antibiotic. PHYSICAL EXAMINATION: Vital Signs: Temperature is 97.3 degrees, pulse 67, respirations 16, blood pressure 158/68. General: This is an obese, middle-aged female. She is in no acute distress. Lungs: Clear to auscultation. Cardiovascular: Regular heart rate. Abdomen: Soft and nontender. Extremities: The left leg, as mentioned above, is less swollen. It is less erythematous. There is a dressing on the leg. The dressing is intact. LAB AND X-RAY: There is no new x-ray today. The lab work for today, hemoglobin is 8.6, hematocrit is 28.5. Creatinine is 0.7. GFR is greater than 60. The patient's wound is growing a gram-positive coccus but it has not been identified yet. ASSESSMENT AND PLAN: For now, I am going to continue with vancomycin as a single agent. I have discussed with Dr. Kern and the patient that there is a potential that the joint became infected during surgery and because of that, I think it would be reasonable to treat her as if had a septic arthritis which would entail 6-8 weeks of IV antibiotic therapy pending the results of the culture. COMORBIDITIES: She is obese. cc: MD Dylan Ivey MD
[2016-08-11] MEDS: THERA M PLUS PO SCH (08:22)
[2016-08-11] MEDS: XANAX PO SCH ×3 (08:22→20:48)
[2016-08-11] MEDS: CELEBREX PO SCH ×2 (08:23→20:50)
[2016-08-11] MEDS: COLACE PO SCH ×2 (08:23→20:52)
[2016-08-11] MEDS: NEURONTIN PO SCH ×3 (08:23→17:33)
[2016-08-11] MEDS: HYTRIN PO SCH (08:23)
[2016-08-11] MEDS: ZANTAC PO SCH ×2 (08:23→20:50)
[2016-08-11] MEDS: PERIDEX MT SCH ×2 (08:23→20:49)
[2016-08-11] MEDS: CELEXA PO SCH (08:23)
[2016-08-11] MEDS: TYLENOL PO PRN (12:21)
--- NOTE | 2016-08-11 16:47 | PROGRESS NOTE ---
DATE: 08/11/2016 SUBJECTIVE: Elis Hurtado is a 61-year-old female who is postoperative day 2 from a left knee irrigation, debridement, evacuation of hematoma, with cellulitis of the knee and leg. She has no complaints. OBJECTIVE: General: She is well-developed, well-nourished female. She is alert and cooperative. Vital signs: Her vital signs are stable. She is afebrile. LABORATORY DATA: Her cultures have come back staph epidermidis. IMPRESSION: Cellulitis, left knee, likely staph epidermidis. PLAN: We will continue her IV antibiotics per Dr. Ozuna. She can be transferred to rehab tomorrow hopefully per Dr. Ozuna' orders. cc: Dylan Kern MD
[2016-08-11] MEDS: VANCOMYCIN 2,500 MG in NS 500 ML IV SCH (18:21)
[2016-08-11] MEDS: MELATONIN PO SCH (20:50)
[2016-08-12] MEDS: OXY IR PO PRN ×5 (00:33→15:23)
[2016-08-12] MEDS: ULTRAM PO SCH ×3 (00:54→12:45)
[2016-08-12] MEDS ORDERED: CHLORASEPTIC SPRAY MT ONE (01:06)
[2016-08-12] MEDS: PROTONIX PO SCH ×2 (04:21→06:16)
[2016-08-12 05:52] LABS: MANUAL DIFF NEEDED? NO
[2016-08-12 05:59] LABS: BASO% 0.4 % (0.0-0.8); EOS# 0.17 X1000 (0.0-0.7); EOS% 2.1 % (0.0-10.0); HEMATOCRIT 27.7 % (37.0-47.0); HEMOGLOBIN 8.6 g/dL (12.0-16.0); IMM GRAN# 0.05 X1000 (0.0-0.04); IMM GRAN% 0.6 % (0.0-0.5); LYMPH# 1.86 X1000 (1.2-3.4); LYMPH% 23.1 % (20.5-51.1); MCH 29.5 PG (27-31); MCV 94.9 FL (81-99); MONO# 0.54 X1000 (0.11-0.59); MONO% 6.7 % (1.7-9.3); MPV 10.2 FL (7.4-10.4); NEUT% 67.1 % (42.2-75.2); PLT 210 X1000 (130-400); RBC 2.92 XMIL (4.2-5.4)
[2016-08-12 07:42] VITALS: BP 123/48
[2016-08-12] MEDS: DILAUDID IV PRN ×2 (07:50→12:44)
[2016-08-12] MEDS ORDERED: KEFZOL 2 GM/D5W 2 GM/50 ML IVPB IV SCH (08:00)
--- NOTE | 2016-08-12 08:20 | PROGRESS NOTE ---
DATE: 08/12/2016 PRESENT ILLNESS: The patient has cellulitis of the leg which is improved greatly. She also has contamination of the joint after irrigation from the 2 organisms that were isolated at surgery, namely Staphylococcus epidermidis and Staphylococcus simulans. MEDICATIONS: The patient now is on vancomycin. This is the 4th day of treatment. Because both of the organisms are susceptible to oxacillin, I have changed the patient to Ancef 2 g IV every 8 hours and discontinued vancomycin. PHYSICAL EXAMINATION: Vital Signs: Temperature is 98.1 degrees, pulse 79, respirations 18, blood pressure 132/48. Generally: This is an obese, middle-aged female. She is in no acute distress. Cardiovascular: Heart rate is regular. Abdomen: Soft and nontender. Lungs: Clear to auscultation. Extremities: The left leg is less swollen. It is not erythematous and the incision is intact. LAB AND X-RAY: The culture from the patient's leg, as mentioned above, grew Staphylococcus simulans and Staphylococcus epidermidis. Both are susceptible to oxacillin. Therefore, they are susceptible to Ancef as well. Patient's CBC shows a white count of 8060, hemoglobin 8.6, and platelet count 210,000. Creatinine is 0.8. GFR is greater than 60. ASSESSMENT AND PLAN: As mentioned above, I am discontinuing vancomycin and instead I have started the patient on Ancef. She will need 38 more days of treatment with Ancef to complete a 6 week treatment course. This may be followed by giving the patient a low dose of an oral antibiotic such as Keflex in view of the fact that the patient has a total knee arthroplasty for her knee. COMORBIDITIES: She is obese. She had a TKA performed. I will be seeing the patient in the office in roughly 3 weeks. cc: MD Dylan Ivey MD
[2016-08-12] MEDS: CELEBREX PO SCH (09:32)
[2016-08-12] MEDS: COLACE PO SCH (09:32)
[2016-08-12] MEDS: HYTRIN PO SCH (09:33)
[2016-08-12] MEDS: CELEXA PO SCH (09:33)
[2016-08-12] MEDS: XANAX PO SCH (09:33)
[2016-08-12] MEDS: PERIDEX MT SCH (09:33)
[2016-08-12] MEDS: NEURONTIN PO SCH ×2 (09:33→12:45)
[2016-08-12] MEDS: THERA M PLUS PO SCH (09:33)
[2016-08-12] MEDS: ZANTAC PO SCH (09:38)
--- NOTE | 2016-08-12 10:12 | DISCHARGE SUMMARY ---
ADMISSION DATE: 08/08/2016 DISCHARGE DATE: 08/12/2016 DISCHARGE DIAGNOSES: Cellulitis, left knee, likely Staphylococcus epidermis and hematoma status post left knee. Irrigation, debridement, and evacuation of hematoma. DISCHARGE MEDICATIONS: See discharge medication list. DISPOSITION: The patient is discharged to rehab. DISCHARGE INSTRUCTIONS: Instructions for left total knee arthroplasty protocol. She is to continue her IV antibiotics per Dr. Ozuna, and she is instructed to return to see Dr. Kern next . HOSPITAL COURSE: On the day of admission, the patient underwent a left knee irrigation, debridement, and evacuation of hematoma with cellulitis of the left knee and leg. Cultures obtained revealed Staph epidermis and Dr. Ozuna was consulted. She was placed on IV Ancef with a PICC line. At discharge she is afebrile, tolerating a regular diet and ambulating well to physical therapy. Her wound is clean, dry, and intact with mild erythema. She is discharged to rehab in stable condition with instructions to follow up as described above and instructions to continue her IV antibiotics. Dictated by BARTOLOME Vazquez for Dylan Kern MD cc: BARTOLOME Vazquez MD
[2016-08-12] MEDS ORDERED: PNEUMOVAX 23 IM ONE (10:45)
--- NOTE | 2016-08-12 16:21 | PROGRESS NOTE ---
DATE: 08/12/2016 ADDENDUM: The patient is being discharged today. [facility] would not accept her with getting Ancef q.8 hours; therefore, I have switched the patient to Rocephin 2 g IV every 12 hours. cc: MD Dylan Ivey MD
== END 2016-08-12 17:31 ==
LOC: ED 06:39 → 4N 12:53
PROVIDERS: ADMIT Orthopaedic Surgery; ATTEND Orthopaedic Surgery